=== PATIENT | male | born 1995 | race Caucasian/White ===

== ENCOUNTER 2017-01-12 15:29 | Inpatient (IN) | payer OTHER ==
[~2017-01-12] VITALS: Ht 177.8 cm; Wt 61.2 kg
[2017-01-12 17:05] VITALS: BP 135/67
--- NOTE | 2017-01-12 17:05 | NUR ---
Pre-admission Notes: Client is seen in intake at this time. Alert and oriented x 4. Noted to be diaphoretic and severe generalized tremors. Denies any AV hallucinations. Patient states "I feel cloudy in my head," Patient states "I feel numb." Denies any allergies. No seizure history. Reports past medial hx of Depression and PTSD. Patient states that he is here to come off of cocaine and rubbing ETOH. Patient is unable to recall the amount he uses at this time, however reported that he used all substances 1 hour prior to coming in. BP 135/67, Pulse 107, O2 sat 99% RA, PL 0/10, Temp 98.1. CIWA 20 - notified Dr. Greenwood of patient's CIWA and will come and see the patient in the unit.
--- NOTE | 2017-01-12 17:20 | NUR ---
Admission Note Patient is a 21 year old male admitted for ETOH and cocaine dependence under the care of Dr. Cesar Greenwood. Patient is alert and oriented x 4. Verbally responsive. Able to make his needs known. Responds appropriately to questions regarding the admission process. Respirations even and unlabored. No SOB noted. Lung sounds clear bilaterally. Body check done. No contraband was found. Skin check done. No skin breakdown noted. No lesions. No rashes noted. Abdomen soft and non-distended with (+) BS in all 4 quadrants. No complains of N/V Addendum: 01/12/17 at 1818 by MARIO PANDEY LVN Error in charting
--- NOTE | 2017-01-12 17:20 | NUR ---
Admission Note Patient is a 21 year old male admitted for ETOH and cocaine dependence under the care of Dr. Cesar Greenwood. Patient is alert and oriented x 4. Verbally responsive. Able to make his needs known. Responds appropriately to questions regarding the admission process. Respirations even and unlabored. No SOB noted. Lung sounds clear bilaterally. Body check done. No contraband was found. Skin check done. No skin breakdown noted. No lesions. No rashes noted. Appears diaphoretic with cold sweats. Abdomen soft and non-distended with (+) BS in all 4 quadrants. No complains of N/V/D or constipation noted at this time. Bladder soft and non-distended. Voids independently. Ambulatory ad leonidas with stead gait. Reports past medical hx of depression and PTSD. Denies having a PCP. Reports NKA. Wishes to be FULL CODE. Follows a REGULAR diet at home. Has hx of substance abuse in the family. Substance Use: 1. Cocaine - Snorts "8th ball" x 6 months. Last use was on 01/12/2017, 1/2 gram 1 hour prior to admission. 2. Rubbing ETOH - Intermittently drinks 1/2 bottle of rubbing ETOH x 6 months. Last use was on 01/12/2017, 1/2 bottle 1 hour prior to admission. Treatment History 1. Simple Recovery - less than a year ago. Patient states that he was there less than a month Dr. Greenwood in and seen the patient. Admission orders entered. Orders noted and carried out. Will continue to monitor.
[2017-01-12] MEDS ORDERED: LOPERAMIDE HCL 2 MG CAPSULE PO PRN ×2 (17:30)
[2017-01-12] MEDS ORDERED: LORAZEPAM 1 MG TABLET PO PRN ×2 (17:30)
[2017-01-12] MEDS ORDERED: MIRALAX 17 GM POWD.PACK PO PRN (17:30)
[2017-01-12] MEDS ORDERED: IBUPROFEN 600 MG TABLET PO PRN (17:30)
[2017-01-12] MEDS ORDERED: MAG HYDROX/AL HYDROX/SIMETH 30 ML LIQUID UDC PO PRN (17:30)
[2017-01-12] MEDS ORDERED: LORAZEPAM 2 MG/1 ML VIAL IM PRN (17:30)
[2017-01-12] MEDS ORDERED: ONDANSETRON 4 MG/2 ML VIAL IM PRN (17:30)
[2017-01-12] MEDS ORDERED: THIAMINE HCL 200 MG/2 ML VIAL IM ONE (17:30)
[2017-01-12] MEDS ORDERED: DICYCLOMINE HCL 20 MG TABLET PO PRN (17:30)
[2017-01-12 17:54] LABS: *AMPHETAMINE, URINE NEGATIVE (NEGATIVE); *BARBITURATE, URINE NEGATIVE (NEGATIVE); *CANNABINOID, URINE POSITIVE (NEGATIVE); *COCCAINE, URINE POSITIVE (NEGATIVE); *OPIATE, URINE NEGATIVE (NEGATIVE); *PHENCYCLIDINE SCREEN,URINE NEGATIVE (NEGATIVE)
[2017-01-12] MEDS ORDERED: ARIP15TA3 PO (18:08)
[2017-01-12] MEDS: ONDANSETRON ODT 4 MG TAB.RAPDIS SL PRN (18:27)
--- NOTE | 2017-01-12 18:27 | NUR ---
Ativan 2 mg PO/Zofran 4 mg SL given: CIWA 19, noted with moderate anxiety, gross tremors, nausea and vomiting x 1. Medicated patient with Ativan 2 mg PO and Zofran 4 mg SL for nausea and vomiting. Will monitor for effectiveness.
--- NOTE | 2017-01-12 18:58 | NUR ---
310 START OF SHIFT NOTE: Patient is a 21 year old male admitted to [facility] on 01/12/2017 for ETOH/Alcohol/Rubbing, Cocaine, and Marijuana dependence. Patient is continuing PRN Medications which tolerated well without ASE. Patient remains compliant with treatment, medications, and diet regime. Patient reports NKA, Regular Diet. Patient is on Full Code, Fall and Seizures Precautions. Patient denies History of Seizure. PMH: Anxiety, Depression, PTSD, Substance Abuse disorder. Patient reports Substance Use: 1."ETOH/Alcohol PO: " Rubbing 1/2 bottle intermittently for 6months. Last intake 1/2 bottle on 01/12/2017 @1600". 2."Coccaine: "8th ball last every day last 6 months. Last intake 1/2 gram on 01/12/2017 @1600". 3."Marijuana: "3 grams during 6 months. Last intake 1 joint on 01/12/2017 @1600". Patient reports Treatment History: "Simple Recovery" less than a year ago, less than a month stay". Upon endorsement, patient is in his room alert and oriented x4.. VSWNL. CIWA 9. The patient presented with anxiety, agitation, nervousness, tremors, diaphoresis, body aches, restless legs, and fatigue. Patient denies SI/HI. Respirations are unlabored and even. Patient denies SOB and chest pain. Lungs Sounds are clear bilaterally. Bowel Sounds active in all x4 quadrants. Abdomen is soft and non-tender. PERRLA, brisk capillary refill, head refrigerating engineer equal and strong. Skin is intact, warm and dry to touch. Encouraged to fluids intake as tolerated. Encouraged to attending groups activities. All needs met. Safety measures on place. Call light within reach, bed in lowest position, and locked, padded rails up bilaterally. Patient endorsed by day shift nurse. Report received. Will continue to monitor closely.
--- NOTE | 2017-01-12 18:58 | NUR ---
START OF SHIFT NOTE: Patient is a 21 year old male admitted to [facility] on 01/12/2017 for ETOH/Alcohol/Rubbing, Cocaine, and Marijuana dependence. Patient is continuing PRN Medications which tolerated well without ASE. Patient remains compliant with treatment, medications, and diet regime. Patient reports NKA, Regular Diet. Patient is on Full Code, Fall and Seizures Precautions. Patient denies History of Seizure. PMH: Anxiety, Depression, PTSD, Substance Abuse disorder. Patient reports Substance Use: 1."ETOH/Alcohol PO: " Rubbing 1/2 bottle intermittently for 6months. Last intake 1/2 bottle on 01/12/2017 @1600". 2."Coccaine: "8th ball last every day last 6 months. Last intake 1/2 gram on 01/12/2017 @1600". 3."Marijuana: "3 grams during 6 months. Last intake 1 joint on 01/12/2017 @1600". Patient reports Treatment History: "Simple Recovery" less than a year ago, less than a month stay". Upon endorsement, patient is in his room alert and oriented x4.. VSWNL. CIWA 9. The patient presented with anxiety, agitation, nervousness, tremors, diaphoresis, body aches, restless legs, and fatigue. Patient denies SI/HI. Respirations are unlabored and even. Patient denies SOB and chest pain. Lungs Sounds are clear bilaterally. Bowel Sounds active in all x4 quadrants. Abdomen is soft and non-tender. PERRLA, brisk capillary refill, primary grade teacher equal and strong. Skin is intact, warm and dry to touch. Encouraged to fluids intake as tolerated. Encouraged to attending groups activities. All needs met. Safety measures on place. Call light within reach, bed in lowest position, and locked, padded rails up bilaterally. Patient endorsed by day shift nurse. Report received. Will continue to monitor closely.
--- NOTE | 2017-01-12 18:58 | NUR ---
End of Shift Notes: Patient admitted today for ETOH and cocaine dependence. Patient's VS monitored closely. No significant abnormalities noted. Withdrawal symptoms monitored. Initial CIWA 20 - patient presented with gross tremors, anxiety, agitation, nausea and vomiting. Medicated patient with Zofran 4 mg SL and Ativan 2 mg PO as ordered.. Results pending. Compliant with care and treatment. All needs met and attended. Will continue to monitor closely.
[2017-01-12] MEDS ORDERED: IV NS 1000 ML 1,000 ML IV ONE (19:15)
--- NOTE | 2017-01-12 19:27 | NUR ---
RE-ASSESSMENT PATIENT DENIES N/V. PRN ZOFRAN ADMINISTRATED @1827 FOR NAUSEA AND VOMITING WAS EFFECTIVE.
--- NOTE | 2017-01-12 19:27 | NUR ---
RE-ASSESSMENT CIWA DECREASED FROM 20 TO 9. PRN ATIVAN EFFECTIVE. SAFETY MEASURES AT PLACE. WILL CONTINUE TO MONITOR CLOSELY.
[2017-01-12] MEDS ORDERED: NICOTINE POLACRILEX 4 MG GUM-PK OF TEN BC PRN (19:45)
[2017-01-12] MEDS ORDERED: NICOTINE 14 MG/24HR PATCH TD PRN (19:45)
[2017-01-12 20:00] VITALS: BP 121/78
--- NOTE | 2017-01-12 20:00 | NUR ---
START OF SHIFT NOTE: Patient is a 21 year old male admitted to [facility] on 01/12/2017 for ETOH/Alcohol/Rubbing, Cocaine, and Marijuana dependence. Patient is continuing PRN Medications which tolerated well without ASE. Patient remains compliant with treatment, medications, and diet regime. Patient reports NKA, Regular Diet. Patient is on Full Code, Fall and Seizures Precautions. Patient denies History of Seizure. PMH: Anxiety, Depression, PTSD, Substance Abuse disorder. Patient reports Substance Use: 1."ETOH/Alcohol PO: " Rubbing 1/2 bottle intermittently for 6months. Last intake 1/2 bottle on 01/12/2017 @1600". 2."Coccaine: "8th ball last every day last 6 months. Last intake 1/2 gram on 01/12/2017 @1600". 3."Marijuana: "3 grams during 6 months. Last intake 1 joint on 01/12/2017 @1600". Patient reports Treatment History: "Simple Recovery" less than a year ago, less than a month stay". Upon endorsement, patient is in his room alert and oriented x4.. VSWNL. CIWA 9. The patient presented with anxiety, agitation, nervousness, tremors, diaphoresis, body aches, restless legs, and fatigue. Patient denies SI/HI. Respirations are unlabored and even. Patient denies SOB and chest pain. Lungs Sounds are clear bilaterally. Bowel Sounds active in all x4 quadrants. Abdomen is soft and non-tender. PERRLA, brisk capillary refill, finger buffs assembler equal and strong. Skin is intact, warm and dry to touch. Encouraged to fluids intake as tolerated. Encouraged to attending groups activities. All needs met. Safety measures on place. Call light within reach, bed in lowest position, and locked, padded rails up bilaterally. Patient endorsed by day shift nurse. Report received. Will continue to monitor closely. Addendum: 01/12/17 at 2327 by AMARA MIKHAYLOVA RN WRONG TIME.
--- NOTE | 2017-01-12 20:00 | NUR ---
IV 20 G STARTED ON LEFT AC. SITE INTACT AND PATENT, FLASHING WELL, NO REDNESS NOTED.
[2017-01-12] MEDS: GABAPENTIN 300 MG CAPSULE PO SCH (20:29)
[2017-01-12] MEDS: ACETAMINOPHEN 325 MG TABLET PO PRN (20:29)
--- NOTE | 2017-01-12 20:29 | NUR ---
PRN TYLENOL 650 MG 2 TAB. PO ADMINISTRATION Patient c/o Generalized body aches and headache. Patient reports pain level "6/10". PRN Tylenol 650 mg 2 tab. PO administrated as ordered with full glass of water. Patient tolerated well. All needs met. Safety measures on place. Call light within reach, bed in lowest position and locked, padded rails up bilaterally rails up bilaterally. Will continue to monitor closely.
[2017-01-12 20:47] LABS: BASOPHILS % (AUTO) 0.5 % (0.0-2.0); EOSINOPHILS # (AUTO) 0.1 K/uL (0.0-0.7); EOSINOPHILS % (AUTO) 1.6 % (0.0-7.0); HEMATOCRIT 43.6 % (40-50); HEMOGLOBIN 15.1 G/DL (14.0-18.0); LYMPHOCYTES # (AUTO) 3.4 K/UL (0.8-4.8); LYMPHOCYTES % (AUTO) 41.8 % (20.5-74.5); MEAN CORPUSCULAR HEMOGLOBIN 31.2 UUG (27.0-31.0); MEAN CORPUSCULAR HGB CONC 35 g/dL (32.0-37.0); MEAN CORPUSCULAR VOLUME 90.4 FL (82.0-92.0); MONOCYTES # (AUTO) 0.9 K/UL (0.1-1.30); MONOCYTES % (AUTO) 10.6 % (0-11); NEUTROPHILS # (AUTO) 3.7 K/UL (1.8-8.9); NEUTROPHILS % (AUTO) 45.5 % (31.5-64.5); PLATELET COUNT (AUTO) 243 K/UL (150-450); RED BLOOD CELL COUNT(AUTO) 4.82 MIL/UL (4.7-6.1); WHITE BLOOD COUNT (AUTO) 8.1 K/UL (4.0-11.2)
[2017-01-12 20:55] LABS: ALANINE AMINOTRANSFERASE 33 U/L (16-63); ALKALINE PHOSPHATASE 57 U/L (50-136); AMYLASE 43 U/L (25-115); ASPARTATE AMINOTRANSFERASE 47 U/L (15-37); BILIRUBIN,TOTAL 1.2 mg/dL (0.2-1.0); CARBON DIOXIDE 34 mmol/L (21-32); CHLORIDE 102 mmol/L (98-107); CREATININE 1.7 mg/dL (0.6-1.3); GLUCOSE 82 mg/dL (74-106); MAGNESIUM 2.1 mg/dL (1.8-2.4); POTASSIUM 3.1 mmol/L (3.5-5.1); TOTAL PROTEIN, SERUM 7.3 g/dL (6.4-8.2); UREA NITROGEN, BLOOD 9 mg/dL (7-18)
[2017-01-12] MEDS ORDERED: LORAZEPAM 1 MG TABLET PO SCH (21:00)
[2017-01-12 21:29] LABS: ETHANOL < 3 MG/DL (0-0)
--- NOTE | 2017-01-12 21:29 | NUR ---
RE-ASSESSMENT Patient reports PRN Tylenol 650 mg 2 tab. PO administrated @2028 was effective. Pain level decreased from "610 to 2/10". All needs met. Safety measures on place. Call light within reach, bed in lowest position and locked, padded rails up bilaterally rails up bilaterally. Will continue to monitor closely.
[2017-01-12] MEDS ORDERED: POTASSIUM CHLORIDE 20 MEQ TAB.PRT.SR PO ONE (21:30)
[2017-01-12] MEDS ORDERED: POTASSIUM CHLORIDE 20 MEQ TAB.PRT.SR ONE (21:55)
--- NOTE | 2017-01-12 21:55 | NUR ---
POTASSIUM LEVEL 3.1. K-DUR ADMINISTRATED ORDERED. PATIENT TOLERATED WELL. ALL NEEDS MET. SAFETY MEASURES ON PLACE. WILL CONTINUE TO MONITOR CLOSELY.
[2017-01-13] VITALS: BP 103/68
--- NOTE | 2017-01-13 | NUR ---
IV DISLODGED. RESTARTED IV 20G ON RIGHT HAND. IV SITE PATENT AND INTACT Addendum: 01/14/17 at 0447 by AMARA JIN RN RESTARTED IV 22 G ON RIGHT UPPER ARM.
[2017-01-13] MEDS: IV NS 1000 ML 1,000 ML IV PRN ×2 (01:03→21:29)
[2017-01-13 04:00] VITALS: BP 98/56
--- NOTE | 2017-01-13 06:53 | NUR ---
END OF SHIFT NOTE: Patient is a 21 year old male admitted to [facility] on 01/12/2017 for ETOH/Alcohol/Rubbing, Cocaine, and Marijuana dependence. Patient is continuing PRN Medications which tolerated well without ASE. Patient reports NKA, Regular Diet. Patient is on Full Code, Fall and Seizures Precautions. Patient denies History of Seizure. PMH: Anxiety, Depression, PTSD, Substance Abuse disorder. IVF administrated as ordered. Patient received NS 1,000 ml by bolus. Recently is Bag #2 with NS, as ordered at rate 125ml/hr. IV site with 20G is intact and patent. PRN Tylenol administrated for generalized body aches, headache/pain level "6/10" was effective. Patient tolerated well. Patient remains compliant with treatment, medications, and diet regime. Last CIWA 6 @0400. COWS/CIWA taken when patient's awake during night. Last VS @0400: T: 98.1, BP: 98/56, HR: 68, RR:14, RA O2Sat: 100%, pain level: "7/10". Patient denies SI/HI. Respirations unlabored and even. Skin is intact, warm and dry to touch. Patient slept 8 hours, intake 1,850 ml, voided x2. Encouraged fluids intake as tolerated. All needs met. Safety measures on place. Call light within reach, bed in lowest position and locked, padded rails up bilaterally. Patient endorsed to day shift nurse. Report given.
--- NOTE | 2017-01-13 07:30 | NUR ---
START OF SHIFT Pt 21 y/o male admitted for etoh and cocaine dependence. Pt received in room on bed with eyes closed resting, but easily arousable to name. Pt alert and oriented to name, place, and time. Perrla. Skin warm and slightly moist to touch. Respirations even and unlabored. Bilateral hand tremors noted slightly. Pt with 22g peripheral IV on right arm noted, and is infusing NS 125ml/hr, and appears to be tolerating well. IV site on right arm intact and inplace, patent, with no redness or infiltration noted. It was reported that pt slept for 8 hours last night. Bed on lowest position with side rails x2 up for safety. Call light within reach. No distress noted this time.
[2017-01-13 08:00] VITALS: BP 128/85
[2017-01-13] MEDS: THIAMINE HCL 100 MG TABLET PO SCH (08:35)
[2017-01-13] MEDS: LORAZEPAM 1 MG TABLET PO SCH ×3 (08:35→20:27)
[2017-01-13] MEDS: MULTIVITAMINS,THERAPEUTIC TABLET PO SCH (08:35)
[2017-01-13] MEDS: FOLIC ACID 1 MG TABLET PO SCH (08:35)
[2017-01-13] MEDS: GABAPENTIN 300 MG CAPSULE PO SCH ×2 (08:38→20:26)
--- NOTE | 2017-01-13 08:55 | NUR ---
PRN REFUSE/WASTE Pt changed mind about nicotine patch and refused.
--- NOTE | 2017-01-13 08:55 | NUR ---
PRN Pt states has body pain 6/10. Motrin po prn per MD order given and tolerated well.
[2017-01-13] MEDS ORDERED: TUBERCULIN,PURIF.PROT.DERIV. 5 TU/0.1 ML TEST ID ONE (09:00)
--- NOTE | 2017-01-13 09:15 | NUR ---
PRN LIV Pt states pain 04/10.
--- NOTE | 2017-01-13 09:33 | NUR ---
SUBSTANCE HISTORY ADDITIONAL 4) dilaudid 4 mg po qid daily x 6 months. Last used 01/10/17 4mg qid. total 6 years 5) hydrocodone 10mg bid po daily x 6 months. Last used 01/10/17 10mg bid. total 4 years.
--- NOTE | 2017-01-13 09:55 | NUR ---
PRN EVAL pt states pain is 2/10.
[2017-01-13] MEDS: BUPRENORPHINE HCL 2 MG TAB.SUBL SL SCH ×3 (13:29→20:27)
--- NOTE | 2017-01-13 13:31 | NUR ---
PRN REFUSE/ WASTE Pt changed mind and did not want miralax.
[2017-01-13 13:44] VITALS: BP 124/81
--- NOTE | 2017-01-13 15:07 | NUR ---
Therapist prompted client to attend group. Client agreed to come to group today.
[2017-01-13] MEDS: ONDANSETRON ODT 4 MG TAB.RAPDIS SL PRN (16:01)
--- NOTE | 2017-01-13 16:05 | NUR ---
PRN Zofran Pt reports one episode of emesis and nausea. Administered PRN Zofran.
--- NOTE | 2017-01-13 17:02 | NUR ---
Therapist prompted client to attend daily group sessions. Client stated that he would make an effort to attend.
[2017-01-13 17:03] VITALS: BP 109/71
--- NOTE | 2017-01-13 17:05 | NUR ---
PRN EVAL Pt states nausea and vomit has stopped.
--- NOTE | 2017-01-13 18:34 | NUR ---
PRN Pt with vomit episode x1. Zofran IM prn per MD order given and tolerated well.
--- NOTE | 2017-01-13 18:58 | NUR ---
START OF SHIFT NOTE: Patient is a 21 year old male admitted to [facility] on 01/12/2017 for ETOH/Alcohol/Rubbing, Cocaine, and Marijuana dependence. Patient is continuing PRN Medications which tolerated well without ASE. Patient remains compliant with treatment, medications, and diet regime. Patient reports NKA, Regular Diet. Patient is on Full Code, Fall and Seizures Precautions. Patient denies History of Seizure. PMH: Anxiety, Depression, PTSD, Substance Abuse disorder. Upon endorsement COWS 8, CIWA 9. VS: T: 97.9, BP: 123/63, HR: 68, RR:19, RA O2Sat: 100%, generalized body aches/pain level: "5/10". Patient denies SI/HI. Respirations unlabored and even. Skin is intact, warm and dry to touch. Peripheral IVF NS @125 ml/hr as ordered. Right Upper arm IV site patent and intact. Encouraged to fluids intake as tolerated. Encouraged to attending groups activities. All needs met. Safety measures on place. Call light within reach, bed in lowest position, and locked, padded rails up bilaterally. Patient endorsed by day shift nurse. Report received. Will continue to monitor closely.
--- NOTE | 2017-01-13 18:58 | NUR ---
END OF SHIFT Pt 21 y/o male admitted for etoh/ cocaine dependence. Pt alert and oriented to name, place, and time. Perrla. Skin warm and moist to touch. Respirations even and unlabored. Bilateral hand tremors noted. Pt observed mostly in dining room. Pt attended group activity. Pt with 22g peripheral IV on right arm, with no redness or infiltration noted, and is patent and is infusing NS 125/mL and is tolerating well. Pt was seen by MD today. Pt medication compliant and tolerated well. No ASE noted.
[2017-01-13 20:00] VITALS: BP 123/63
[2017-01-13] MEDS: diphenhydrAMINE 50 MG CAPSULE PO PRN (20:27)
[2017-01-13] MEDS ORDERED: PROMETHAZINE HCL 25 MG/1 ML VIAL IM PRN (21:45)
[2017-01-13] MEDS ORDERED: PROMETHAZINE HCL 25 MG/1 ML VIAL ONE (22:25)
--- NOTE | 2017-01-13 22:28 | NUR ---
PRN PHENERGAN 25 MG/1 ML IM ADMINISTRATION Patient c/o nausea and vomiting x2. PRN Phenergan 25 mg/1ml IM Inj on the Left Dorsogluteal Site: Gluteus Jaquan Muscle administrated as ordered. Patient tolerated well. All needs met. Safety measures on place. Call light within reach, bed in lowest position and locked, padded rails up bilaterally. Will continue to monitor closely.
--- NOTE | 2017-01-13 23:28 | NUR ---
RE-ASSESSMENT Patient is sleeping. Respirations even and unlabored. RR 16. PRN Phenergan administrated @2228 was effective. All needs met. Safety measures on place. Call light within reach, bed in lowest position and lock ed, padded rails up bilaterally rails up bilaterally. Will continue to monitor closely.
[2017-01-14] VITALS: BP 106/65
[2017-01-14 04:00] VITALS: BP 96/56
[2017-01-14] MEDS: ACETAMINOPHEN 325 MG TABLET PO PRN (05:44)
[2017-01-14] MEDS: CLONIDINE HCL 0.1 MG TABLET PO PRN ×2 (05:44→13:08)
--- NOTE | 2017-01-14 05:44 | NUR ---
PRN TYLENOL 650 MG 2 TAB AND PRN CLONIDINE 0.1 MG 1 TAB PO FOR ANXIETY ADMINISTRATED. PATIENT TOLERATED WELL. ALL NEEDS MET. SAFETY MEASURES ON PLACE. WILL CONTINUE TO MONITOR CLOSELY.
--- NOTE | 2017-01-14 06:44 | NUR ---
RE-ASSESSMENT Patient is sleeping. Respirations even and unlabored. RR 16. PRN Tylenol PO and PRN Clonidine PO were effective. All needs met. Safety measures on place. Call light within reach, bed in lowest position and locked, padded rails up bilaterally rails up bilaterally. Will continue to monitor closely.
--- NOTE | 2017-01-14 07:00 | NUR ---
IV DISLODGED. RESTARTED IV 22G ON UPPER RIGHT ARM. IV SITE PATENT AND INTACT
--- NOTE | 2017-01-14 07:30 | NUR ---
START OF SHIFT Pt 21 y/o male admitted for etoh/ cocaine dependence. Pt received in room awake watching television. Pt alert and oriented to name, place, and time. Perrla. Skin warm and slightly moist to touch. Respirations even and unlabored. Bilateral hand tremors noted slightly. Pt with peripheral IV 22g on right AC intact and in place, patent, with no redness and is infusing NS 125/mL and is tolerating well. It was reported that pt slept for 7 hours last night. Bed on lowest position with side rails x2 up for safety. Call light within reach. No distress noted at this time.
--- NOTE | 2017-01-14 07:39 | NUR ---
END OF SHIFT NOTE: Patient is a 21 year old male admitted to [facility] on 01/12/2017 for ETOH/Alcohol/Rubbing, Cocaine, and Marijuana dependence. Patient is continuing PRN Medications which tolerated well without ASE. Patient reports NKA, Regular Diet. Patient is on Full Code, Fall and Seizures Precautions. Patient denies History of Seizure. PMH: Anxiety, Depression, PTSD, Substance Abuse disorder. IVF administrated as ordered. Patient received IVF with NS 1,000 ml Recently is Bag #3 with NS, as ordered at rate 125ml/hr. IV site on the Right Upper arm with 22G is intact and patent. PRN Phenergan IM for N/V, PRN Clonidine 0.1mg 1 tab PO for anxiety and PRN Tylenol administrated for generalized body aches, headache/pain level "6/10" were effective. Patient tolerated well. Patient remains compliant with treatment, medications, and diet regime. Last COWS 6,CIWA 4 @0400. COWS/CIWA taken when patient's awake during night. Last VS @0400: T: 98.1, BP: 98/56, HR: 68, RR:14, RA O2Sat: 100%, pain level: "7/10". Patient denies SI/HI. Respirations unlabored and even. Skin is intact, warm and dry to touch. Patient slept 8 hours, intake 1,850 ml, voided x2. Encouraged fluids intake as tolerated. All needs met. Safety measures on place. Call light within reach, bed in lowest position and locked, padded rails up bilaterally. Patient endorsed to day shift nurse. Report given.
[2017-01-14 08:00] VITALS: BP 118/63
[2017-01-14 08:09] LABS: BILIRUBIN,DIRECT 0.2 mg/dL (0.0-0.2); CREATININE 1.5 mg/dL (0.6-1.3); MAGNESIUM 1.8 mg/dL (1.8-2.4); TOTAL PROTEIN, SERUM 6.9 g/dL (6.4-8.2)
[2017-01-14] MEDS: MULTIVITAMINS,THERAPEUTIC TABLET PO SCH (08:32)
[2017-01-14] MEDS: GABAPENTIN 300 MG CAPSULE PO SCH ×2 (08:32→21:27)
[2017-01-14] MEDS: FOLIC ACID 1 MG TABLET PO SCH (08:32)
[2017-01-14] MEDS: LORAZEPAM 1 MG TABLET PO SCH ×3 (08:32→21:28)
[2017-01-14] MEDS: THIAMINE HCL 100 MG TABLET PO SCH (08:32)
[2017-01-14] MEDS: BUPRENORPHINE HCL 2 MG TAB.SUBL SL SCH ×3 (08:33→21:31)
--- NOTE | 2017-01-14 09:00 | NUR ---
PRN REFUSAL Pt states did not have BM for a yesterday. Offered Miralaax powder mix prn per MD order, but pt refused even with encouragement.
[2017-01-14 12:07] LABS: HEPATITIS B SURFACE AG Negative (Negative)
[2017-01-14 12:51] VITALS: BP 147/95
--- NOTE | 2017-01-14 13:12 | NUR ---
PRN Pt with nr=058/95 and states feels anxious. Catapres po prn per MD order given and tolerated well.
--- NOTE | 2017-01-14 14:12 | NUR ---
PRN EVAL vm=455/88
--- NOTE | 2017-01-14 14:21 | NUR ---
IV PULLED OUT Peripheral IV pulled out by pt.
[2017-01-14] MEDS: IV NS 1000 ML 1,000 ML IV PRN (15:42)
[2017-01-14 16:00] VITALS: BP 134/86
[2017-01-14] MEDS ORDERED: predniSONE 20 MG TABLET PO SCH (18:00)
--- NOTE | 2017-01-14 18:07 | NUR ---
END OF SHIFT Pt 21 y/o male admitted for etoh/ cocaine dependence. Pt alert and oriented to name, place, and time. Perrla. Skin warm and moist to touch. Respirations even and unlabored. Bilateral hand tremors noted. Pt observed mostly in dining room. Pt attended group activity. Pt with 22g peripheral IV on right AC, with no redness or infiltration noted, and is patent and is infusing NS 125/mL and is tolerating well. Pt was seen by MD today. Pt medication compliant and tolerated well. No ASE noted. Addendum: 01/14/17 at 1859 by ARELY WEST RN correction IV site on right forearm
--- NOTE | 2017-01-14 19:30 | NUR ---
Start of Shift Notes: Report received from day shift nurse. Pt is a 21M, admitted for ETOH/Opiate/Cocaine dependence on 01/12/17. Pt was at group activity during the start of shift. Pt is AOx4 without s/s of acute distress. Pt is full code, on regular diet, and on fall/seizure precautions. Pt noted with NKA. Pt reports hx of Depression and PTSD. Pt is currently on 4-day Ativan and 4-day Subutex taper to manage withdrawal symptoms. Per day shift nurse, pt's last CIWA was 3 and last COWS was 4 at 1641. Bed in lowest position. Side rails up x2. Call light functioning and within reach. All needs attended and met. Will continue to monitor.
[2017-01-14 20:00] VITALS: BP 149/92
--- NOTE | 2017-01-14 20:00 | NUR ---
Pt Communication: Pt educated about the importance of keeping his IV fluids infusing for hydration. Pt insists on going to the smoking patio or the recreation room. Risks explained to pt. Pt verbalized understanding. Pt stated he can drink fluids for intake. IV site remains intact and patent on RFA. Will continue to monitor.
[2017-01-14] MEDS: DICYCLOMINE HCL 20 MG TABLET PO SCH (21:28)
[2017-01-14] MEDS: CLONIDINE HCL 0.1 MG TABLET PO SCH (21:28)
--- NOTE | 2017-01-14 23:30 | NUR ---
Pt Assessment: Pt reconnected back to IV fluids. NS infusing through RFA @ 125ml/hr. No adverse reaction noted. Will continue to monitor.
[2017-01-14] MEDS: diphenhydrAMINE 50 MG CAPSULE PO PRN (23:43)
--- NOTE | 2017-01-14 23:43 | NUR ---
PRN Benadryl: Pt requested medication to help him sleep. PRN Benadryl given as ordered. Will continue to monitor.
[2017-01-15] VITALS (7 sets, daily range): BP systolic 105–141; BP diastolic 50–91
--- NOTE | 2017-01-15 06:40 | NUR ---
End of Shift Notes: Pt is 21M, admitted for ETOH/Opiate/Cocaine dependence on 01/12/17. Pt is full code, on regular diet, and on fall/seizure precautions. Pt noted with NKA. Pt reports hx of Depression and PTSD. Pt is currently on 4-day Ativan and 4-day Subutex taper to manage withdrawal symptoms. Pt is compliant with plan of care. Pt slept for 4 hours. Respirations even and unlabored. Last CIWA score was 4 and last COWS score was 3 at 0400. PRN Benadryl was given for sleep. No N/V noted during the shift. Fall and Sz precautions observed. Bed in lowest position. Side rails up x2. Call light functioning and within reach. All needs attended and met. Will endorse to day shift nurse.
[2017-01-15] MEDS: ACETAMINOPHEN 325 MG TABLET PO PRN ×2 (06:53→08:33)
[2017-01-15] MEDS: IV NS 1000 ML 1,000 ML IV PRN (06:54)
--- NOTE | 2017-01-15 07:30 | NUR ---
START OF SHIFT Pt 21 y/o male admitted for etoh/ cocaine dependence. Pt received in room awake walking around in the hallways. Pt alert and oriented to name, place, and time. Perrla. Skin warm and slightly moist to touch. Respirations even and unlabored. Bilateral hand tremors noted slightly. Pt with peripheral IV 22g on right forearm intact and in place, patent, with no redness and is infusing NS 125/mL and is tolerating well. It was reported that pt slept for 4 hours last night. Bed on lowest position with side rails x2 up for safety. Call light within reach. No distress noted at this time.
[2017-01-15] MEDS: GABAPENTIN 300 MG CAPSULE PO SCH ×3 (08:33→20:39)
[2017-01-15] MEDS: MULTIVITAMINS,THERAPEUTIC TABLET PO SCH (08:33)
[2017-01-15] MEDS: BUPRENORPHINE HCL 2 MG TAB.SUBL SL SCH ×2 (08:33→20:39)
[2017-01-15] MEDS: THIAMINE HCL 100 MG TABLET PO SCH (08:33)
[2017-01-15] MEDS: CLONIDINE HCL 0.1 MG TABLET PO SCH ×2 (08:33→20:39)
[2017-01-15] MEDS: FOLIC ACID 1 MG TABLET PO SCH (08:33)
[2017-01-15] MEDS: LORAZEPAM 1 MG TABLET PO SCH ×2 (08:34→20:39)
--- NOTE | 2017-01-15 08:38 | NUR ---
prn pt states has headache 6/10. Tylenol po prn per MD order given and tolerated well.
[2017-01-15] MEDS: ONDANSETRON ODT 4 MG TAB.RAPDIS SL PRN (08:51)
--- NOTE | 2017-01-15 08:52 | NUR ---
PRN pt with c/o nausea. Zofran odt prn per MD order given and tolerated well.
--- NOTE | 2017-01-15 09:00 | NUR ---
PRN REFUSAL Pt states did not have BM for a yesterday. Offered Miralaax powder mix prn per MD order, but pt refused even with encouragement.
--- NOTE | 2017-01-15 09:38 | NUR ---
PRN EVAL Pt states headache 04/10.
--- NOTE | 2017-01-15 09:52 | NUR ---
PRN EVAL Pt states does not feel nauseous.
[2017-01-15] MEDS: DICYCLOMINE HCL 20 MG TABLET PO SCH ×3 (11:13→20:39)
[2017-01-15] MEDS ORDERED: PENICILLIN G BENZATHINE 2.4 MMU/4 ML DISP.SYRIN IM ONE (15:00)
--- NOTE | 2017-01-15 18:11 | NUR ---
END OF SHIFT Pt 21 y/o male admitted for etoh/ cocaine dependence. Pt alert and oriented to name, place, and time. Perrla. Skin warm and moist to touch. Respirations even and unlabored. Bilateral hand tremors noted. Pt observed mostly in dining room. Pt attended group activity. Pt with 22g peripheral IV on right forearm, with no redness or infiltration noted, and is patent and is infusing NS 125/mL and is tolerating well. Pt was seen by MD today. Pt medication compliant and tolerated well. No ASE noted.
--- NOTE | 2017-01-15 19:00 | NUR ---
Start of Shift Patient Received. Patient is in activities room participating in group activities. Patient is a 21 year old male admitted on 01/12/17 for ETOH and Opiate Dependence under the care of Dr. Greenwood. He is currently receiving a modified 4 day Ativan and 4 day Subutex taper. Patient verbalizes no known allergies, wishes to be full code, following a regular diet, placed on fall and seizure precautions, and skin noted intact. Patients past medical history noted as Depression and PTSD. No history of seizures noted. Per endorsement, patient is currently receiving IV Therapy of NS 125/ml with 22gauge peripheral IV to the right forearm and is tolerating well. No Redness or infiltration noted. patient was given PRN Tylenol for pain and medication noted to be effective. Patient also received One time dose of PCN injection for Positive RPR. Last noted COWS 3 and CIWA 4. All needs attended to promptly. Will continue plan of care as ordered.
[2017-01-16] VITALS: BP 125/66
[2017-01-16] MEDS: OLANZAPINE ZYDIS 5 MG TAB.RAPDIS PO PRN ×2 (00:33→21:09)
--- NOTE | 2017-01-16 00:35 | NUR ---
PRN Medication Administration Patient verbalizing increased agitation and frustrations. PRN Zyprexa administered as per order. Will continue to monitor.
--- NOTE | 2017-01-16 01:30 | NUR ---
PRN Medication Reassessment Patient noted in bed sleeping. Breathing even and non labored. No signs of pain or discomfort noted. Patient was given PRN Zyprexa for increased agitation with medication noted to be effective. Will continue to monitor.
[2017-01-16 04:10] VITALS: BP 131/80
[2017-01-16] MEDS ORDERED: HYDROXYZINE PAMOATE 25 MG CAPSULE PO PRN ×2 (04:30→17:30)
[2017-01-16] MEDS ORDERED: HYDROXYZINE PAMOATE 25 MG CAPSULE PO ONE (04:30)
--- NOTE | 2017-01-16 04:33 | NUR ---
PRN Medication Administration Patient noted awake with increased anxiety and agitation due to completion of IV therapy. one time order for Vistaril 25mg obtained from MD and administered as per order. Will continue to monitor.
[2017-01-16] MEDS ORDERED: HYDROXYZINE PAMOATE 25 MG CAPSULE ONE (04:42)
--- NOTE | 2017-01-16 07:24 | NUR ---
End of Shift Patient is in his room sleeping. Breathing even and non labored. No signs of pain or discomfort noted. Patient is a 21 year old male admitted on 01/12/17 for ETOH and Opiate Dependence and is currently receiving a modified 4 day Ativan and 4 day Subutex taper. No Known Allergies, Full Code, Regular Diet, placed on fall and seizure precautions, and skin noted intact. IV therapy completed and patient tolerated well. IV site remains intact with no signs of redness of infiltration. patient was given one time dose of Vistaril 25mg and PRN Zyprexa with medications noted to be effective. Last noted COWS 6 and CIWA 10. All needs attended to promptly. Will endorse to continue plan of care as ordered.
--- NOTE | 2017-01-16 07:30 | NUR ---
START OF SHIFT Pt 21 y/o male admitted for etoh/ cocaine dependence. Pt received in room awake walking around in the hallways. Pt alert and oriented to name, place, and time. Perrla. Skin warm and slightly moist to touch. Respirations even and unlabored. Bilateral hand tremors noted slightly. It was reported that pt slept for 5 hours last night. Bed on lowest position with side rails x2 up for safety. Call light within reach. No distress noted at this time.
[2017-01-16] MEDS: MULTIVITAMINS,THERAPEUTIC TABLET PO SCH (08:48)
[2017-01-16] MEDS: GABAPENTIN 300 MG CAPSULE PO SCH ×3 (08:48→21:09)
[2017-01-16] MEDS: THIAMINE HCL 100 MG TABLET PO SCH (08:48)
[2017-01-16] MEDS: CLONIDINE HCL 0.1 MG TABLET PO SCH ×2 (08:49→21:09)
[2017-01-16] MEDS: LORAZEPAM 1 MG TABLET PO SCH (08:49)
[2017-01-16] MEDS: FOLIC ACID 1 MG TABLET PO SCH (08:49)
[2017-01-16 08:53] VITALS: BP 103/62
[2017-01-16] MEDS ORDERED: BUPRENORPHINE HCL 2 MG TAB.SUBL SL SCH (09:00)
[2017-01-16] MEDS ORDERED: LORAZEPAM 1 MG TABLET PO SCH (09:00)
[2017-01-16] MEDS: DICYCLOMINE HCL 20 MG TABLET PO SCH ×3 (09:31→21:08)
--- NOTE | 2017-01-16 09:37 | NUR ---
PRN REFUSAL Pt states did not have BM for a yesterday. Offered Miralaax powder mix prn per MD order, but pt refused even with encouragement. Pt states still has flatulence.
[2017-01-16 12:31] VITALS: BP 142/81
[2017-01-16 17:31] VITALS: BP 132/92
--- NOTE | 2017-01-16 18:40 | NUR ---
END OF SHIFT Pt 21 y/o male admitted for etoh/ cocaine dependence. Pt alert and oriented to name, place, and time. Perrla. Skin warm and moist to touch. Respirations even and unlabored. Bilateral hand tremors noted. Pt observed mostly in dining room. Pt is scheduled to be discharged tomorrow. Pt attended group activity. Pt was seen by MD today. Pt medication compliant and tolerated well. No ASE noted.
--- NOTE | 2017-01-16 19:05 | NUR ---
Start of Shift Patient Received. Patient is in activities room participating in group activities. Patient is a 21 year old male admitted on 01/12/17 for ETOH and Opiate Dependence and is currently receiving a modified 4 day Ativan and 4 day Subutex taper. No Known Allergies, Full Code, Regular Diet, placed on fall and seizure precautions, and skin noted intact. IV therapy completed and IV Site discontinued. Patient is set for discharge tomorrow 01/17/17. Last noted COWS 4 and CIWA 2. All needs attended to promptly. Will continue plan of care as ordered.
[2017-01-16] MEDS ORDERED: HYDR-3895 PO (19:21)
[2017-01-16] MEDS ORDERED: GABA-534 PO ×2 (19:21)
[2017-01-16] MEDS ORDERED: CLON0.1T14 PO (19:21)
[2017-01-16] MEDS ORDERED: DICY20TA28 PO (19:21)
[2017-01-16] MEDS ORDERED: DIPH50CA37 PO (19:21)
[2017-01-16] MEDS ORDERED: IBUP-1955 PO (19:21)
[2017-01-16] MEDS ORDERED: OLAN5TAB6 PO (19:22)
[2017-01-16] MEDS ORDERED: ONDA4TAB11 SL (19:22)
[2017-01-16] MEDS ORDERED: NICO4GUM38 BC (19:22)
[2017-01-16 20:26] VITALS: BP 143/83
--- NOTE | 2017-01-16 21:10 | NUR ---
PRN Medication Administration Patient verbalizing increased agitation due to history of PTSD. PRN Zyprexa administered as per order. Will continue to monitor.
[2017-01-16] MEDS: diphenhydrAMINE 50 MG CAPSULE PO PRN (21:43)
--- NOTE | 2017-01-16 21:45 | NUR ---
PRN Medication Administration Patient verbalizing inability of falling asleep. PRN Benadryl administered as per ordered. Will continue to monitor.
--- NOTE | 2017-01-16 22:45 | NUR ---
PRN Medication Reassessment Patient noted in bed sleeping. Breathing even and non labored. Patient was given PRN Zyprexa for increased agitation and PRN Benadryl for inability of falling asleep. Medication noted to be effective. Will continue to monitor.
[2017-01-17 00:55] VITALS: BP 112/67
[2017-01-17 04:01] VITALS: BP 125/79
--- NOTE | 2017-01-17 07:21 | NUR ---
End of Shift Patient is in bed awake, alert and verbally responsive. Breathing even and non labored. No pain verbalized. Patient is a 21 year old male admitted on 01/12/17 for ETOH and Opiate Dependence and completed a 4 day Ativan and 4 day Subutex taper. No Known Allergies, Full Code, Regular Diet, placed on fall and seizure precautions, and skin noted intact. Patient is set for discharge today 01/17/17. Patient received PRN Zyprexa and PRN Benadryl with medications noted to be effective. Last noted COWS 4 and CIWA 4. All needs attended to promptly. Will endorse to continue plan of care as ordered.
--- NOTE | 2017-01-17 07:35 | NUR ---
START OF SHIFT Received report from night nurse, pt was admitted on 01/12/17 for ETOH, opiate and cocaine withdrawals. Pt is medically cleared for d/c. PRN Zyprexa and Benadryl administered and effective. Pt slept for 8 hours. Most recent CIWA is 4, most recent COWS is 4. All needs met, pt is not in any acute discomfort. Will continue to monitor.
[2017-01-17 08:05] VITALS: BP 123/76
[2017-01-17 08:15] VITALS: BP 123/76
[2017-01-17] MEDS: GABAPENTIN 300 MG CAPSULE PO SCH (08:15)
[2017-01-17] MEDS: FOLIC ACID 1 MG TABLET PO SCH (08:15)
[2017-01-17] MEDS: DICYCLOMINE HCL 20 MG TABLET PO SCH (08:15)
[2017-01-17] MEDS: CLONIDINE HCL 0.1 MG TABLET PO SCH (08:15)
[2017-01-17] MEDS: MULTIVITAMINS,THERAPEUTIC TABLET PO SCH (08:15)
[2017-01-17] MEDS: THIAMINE HCL 100 MG TABLET PO SCH (08:15)
--- NOTE | 2017-01-17 09:20 | NUR ---
D/C NOTES Pt is A/O x4. V/S remain WNL. Pt denies SI/HI or hallucinations. Pt shows no s/s of acute withdrawal at this time, and is stable. has medically cleared pt for d/c . Education on Hepatitis C, smoking cessation and medication side effects provided. Pt verbalizes understanding. All pt belongings are in belonging bag, including prescriptions, pt did not have any home medications. Refuses PNU vaccination. Pt is being accompanied by DAIRY NUTRITION SPECIALIST at this time to be transported to rehab. All needs met.
== END 2017-01-17 09:20 | disposition other institution (70) | DRG 895 ==
LOC: SRC 16:53
PROVIDERS: ADMIT Internal Medicine; ATTEND Internal Medicine
PROC: HZ2ZZZZ Detoxification Services for Substance Abuse Treatment (ICD-10-PCS; principal; 2017-01-12)
PROC: HZ41ZZZ Group Counseling for Substance Abuse Treatment, Behavioral (ICD-10-PCS; principal; 2017-01-12)
DX: F10.239 Alcohol dependence with withdrawal, unspecified (principal); N17.9 Acute kidney failure, unspecified; E87.3 Alkalosis; A53.0 Latent syphilis, unspecified as early or late; F15.20 Other stimulant dependence, uncomplicated; F11.23 Opioid dependence with withdrawal; K70.10 Alcoholic hepatitis without ascites; F17.210 Nicotine dependence, cigarettes, uncomplicated; Z80.9 Family history of malignant neoplasm, unspecified; Z91.89 Other specified personal risk factors, not elsewhere classified; Z81.1 Family history of alcohol abuse and dependence; Z83.3 Family history of diabetes mellitus; Z59.0 Homelessness; F43.10 Post-traumatic stress disorder, unspecified; E86.0 Dehydration; F12.90 Cannabis use, unspecified, uncomplicated; F32.9 Major depressive disorder, single episode, unspecified; F14.220 Cocaine dependence with intoxication, uncomplicated; I15.9 Secondary hypertension, unspecified; Y90.9 Presence of alcohol in blood, level not specified
CPT/HCPCS: 36415; 70030-TC; 80307; 80349; 80353; 83735; 85025; 86580; 86592; 86705; 86803; 87340; 87806; A4663; G0480; J2405; J2550; J3411; J7030; J7042; J7512; Q0162; Q0163

== ENCOUNTER 2017-04-11 14:52 | Inpatient (IN) | payer OTHER ==
[~2017-04-11] VITALS: Ht 180.3 cm; Wt 61.2 kg
[~2017-04-11 14:52] MED LIST: CLON0.1T14 PO; DICY20TA28 PO; DIPH50CA37 PO; GABA-534 PO; HYDR-3895 PO; IBUP-1955 PO; NICO4GUM38 BC; OLAN5TAB6 PO; ONDA4TAB11 SL
[2017-04-11] MEDS ORDERED: THIAMINE HCL 200 MG/2 ML VIAL IM ONE (15:45)
[2017-04-11] MEDS ORDERED: LORAZEPAM 2 MG/1 ML VIAL IM PRN (15:45)
[2017-04-11] MEDS ORDERED: ONDANSETRON ODT 4 MG TAB.RAPDIS SL PRN (15:45)
[2017-04-11] MEDS ORDERED: MAG HYDROX/AL HYDROX/SIMETH 30 ML LIQUID UDC PO PRN (15:45)
[2017-04-11] MEDS ORDERED: ACETAMINOPHEN 325 MG TABLET PO PRN (15:45)
[2017-04-11] MEDS ORDERED: diphenhydrAMINE 50 MG CAPSULE PO PRN (15:45)
[2017-04-11] MEDS ORDERED: ONDANSETRON 4 MG/2 ML VIAL IM PRN (15:45)
[2017-04-11] MEDS ORDERED: LORAZEPAM 1 MG TABLET PO PRN ×2 (15:45)
[2017-04-11] MEDS ORDERED: CLONIDINE HCL 0.1 MG TABLET PO PRN (15:45)
[2017-04-11] MEDS ORDERED: DICYCLOMINE HCL 20 MG TABLET PO PRN (15:45)
[2017-04-11] MEDS ORDERED: IBUPROFEN 600 MG TABLET PO PRN (15:45)
[2017-04-11] MEDS ORDERED: LOPERAMIDE HCL 2 MG CAPSULE PO PRN ×2 (15:45)
[2017-04-11] MEDS ORDERED: MIRALAX 17 GM POWD.PACK PO PRN (15:45)
[2017-04-11] MEDS ORDERED: BUPRENORPHINE HCL 2 MG TAB.SUBL SL PRN (15:45)
--- NOTE | 2017-04-11 15:45 | NUR ---
PRE-ADMISSION NOTE Pt is a 22 yr old male, AA&Ox4. Pt is presenting himself in intake intoxicated with alcohol and cocaine. Pt states of drinking 1.5 pint of whiskey and snorting 2.5g of cocaine prior to admission. Pt breath smells like alcohol. VS are BP 122/64,P 78, R 18, T 98.4, O2 98%, 6/10 pain to lower back. Will continue with assessment upon arrival on unit.
[2017-04-11 16:00] VITALS: BP 122/64
[2017-04-11 16:13] LABS: BASOPHILS % (AUTO) 0.4 % (0.0-2.0); EOSINOPHILS % (AUTO) 0.1 % (0.0-7.0); HEMOGLOBIN 14.6 g/dL (12.5-16.3); LYMPHOCYTES % (AUTO) 23.3 % (20.5-51.5); MEAN CORPUSCULAR HEMOGLOBIN 31.1 uug (23.8-33.4); MEAN CORPUSCULAR HGB CONC 35 g/dL (32.5-36.3); MEAN CORPUSCULAR VOLUME 89.7 fL (73.0-96.2); MONOCYTES # (AUTO) 1.6 K/uL (2.0-10.0); MONOCYTES % (AUTO) 12.5 % (0.0-11.0); NEUTROPHILS # (AUTO) 8.2 K/uL (1.8-8.9); NEUTROPHILS % (AUTO) 63.7 % (38.5-71.5); PLATELET COUNT (AUTO) 268 K/uL (152-348); RED BLOOD CELL COUNT(AUTO) 4.68 MIL/uL (4.06-5.63); WHITE BLOOD COUNT (AUTO) 12.8 K/uL (3.6-10.2)
[2017-04-11 16:20] LABS: BILIRUBIN,TOTAL 1.5 mg/dL (0.2-1.0); CREATININE 1.2 mg/dL (0.6-1.3); POTASSIUM 3.1 mmol/L (3.5-5.1); TOTAL PROTEIN, SERUM 8.1 g/dL (6.4-8.2)
--- NOTE | 2017-04-11 16:25 | NUR ---
MEDICATION REFUSED Pt refused Vitamin B1 injection. Pt was educated on medication regimen. Pt continues to refuse.
[2017-04-11 16:27] LABS: *AMPHETAMINE, URINE NEGATIVE (NEGATIVE); *BARBITURATE, URINE NEGATIVE (NEGATIVE); *CANNABINOID, URINE POSITIVE (NEGATIVE); *COCCAINE, URINE POSITIVE (NEGATIVE); *OPIATE, URINE NEGATIVE (NEGATIVE); *PHENCYCLIDINE SCREEN,URINE NEGATIVE (NEGATIVE)
--- NOTE | 2017-04-11 16:45 | NUR ---
ADMISSION NOTE Pt is a 22 yr old male, AA&Ox4. Pt is presenting himself to [facility] for medically supervised withdrawal. Pt was observed intoxicated and noted with alcohol breath.Pt is observed with slurred speech. Body check was done, Skin is intact, warm and dry to touch. Pt was previously hospitalized at this facility on December 2016. Pt states of relapsing on New Year. Pt denies any PMH and denies any home medication. Pt is full code, regular diet and NKA. Denies any hx of seizures. Pt states of multiple substance abuse in the past 6 weeks. Pt states of drinking alcohol, unspecific amounts on non daily basis. Pt states he last drank was on 04/11/17 prior to admission, pt states he drank 1.5 pints of whiskey. Pt states alcohol "is not an issue". Pt states, "Alcohol is not the problem it's the coke". Pt states of taking Xanax 2-4mg PO every other day. Pt states of first use was at the age of 16 yrs old. Last use was on 04/09/17, consumed 4mg PO. Pt also states of using [place] 30mg PO every other day. Pt states he first use [place] at 15 yrs old. Last use was on 04/09/17, Pt consumed 30mg PO. Pt states he uses Dilaudid 12mg PO every other day. Pt states he first used Dilaudid at the age of 15 yrs old. Last use was on 04/09/17, pt states he used 12mg PO. In addition, pt would snort cocaine 1-2g daily. Pt states he first started using cocaine at the age of 17 yrs old. Last use was on 04/11/17, pt states of snorting 2.5g. Due to pt being intoxicated prior to admission, no evidence of withdrawal is noted. CIWA score and COWS score is not applicable at this time. Pt was seen and examined by Dr. Greenwood with new orders for Ativan PRN and Subutex PRN for s/s of w/d. Pt was educated on medication regimen and plan of care. Pt was able to verbalize understanding. Pt was oriented around unit and equipment in room. Pt is place on seizure and fall precautions. Call light is within reach.
[2017-04-11 17:15] VITALS: BP 102/55
[2017-04-11] MEDS ORDERED: POTASSIUM CHLORIDE 20 MEQ TAB.PRT.SR PO ONE (18:00)
--- NOTE | 2017-04-11 19:10 | NUR ---
END OF SHIFT NOTE Pt was endorsed to night worker nurse. Pt continues to be observed intoxicated. CIWA score and COWS scores is not applicable. Pt's K+ level was abnormal and was replaced with K-Dur 40Meq x1. Medication was matheus well. Pt was encouraged increase fluid intake. VS are WNL. Safety precautions observed. Call light is within reach.
--- NOTE | 2017-04-11 19:30 | NUR ---
START OF SHIFT Pt is a 22 y/o male admitted on 04/11/17 for ETOH, benzo, opiate and cocaine withdrawal. Pt came in intoxicated, no PRNs administered. Pt has PRN Ativan and Subutex available at this time. Upon assessment pt is laying in bed with eyes closed. Upon awakening pt presents with fatigue, difficulty concentrating, flat affect and anxiety. Safety measures in place. Call light within reach. No scheduled medications due at this time. Will continue to monitor.
[2017-04-11 20:00] VITALS: BP 122/55
--- NOTE | 2017-04-11 20:00 | NUR ---
COWS/CIWA DEFERRED Pt laying in bed with eyes closed, upon awakening pt is unable to stay awake to maintain a conversation. Respirations even and unlabored. Pt noted to be still intoxicated. COWS/CIWA deferred at this time. Safety measures in place. Call light within reach. Will continue to monitor.
[2017-04-12] VITALS: BP 117/53
--- NOTE | 2017-04-12 | NUR ---
COWS/CIWA DEFERRED Pt laying in bed with eyes closed, COWS/CIWA deferred, to be assessed when pt is awake per orders. Respirations even and unlabored. Safety measures in place. Call light within reach. Will continue to monitor.
[2017-04-12 04:00] VITALS: BP 138/63
--- NOTE | 2017-04-12 07:20 | NUR ---
END OF SHIFT Pt is a 22 y/o male admitted on 04/11/17 for ETOH, benzo, opiate and cocaine withdrawal. Pt has PRN Ativan and Subutex available at this time. Pt slept throughout shift and presented with fatigue, difficulty concentrating, flat affect and anxiety. No scheduled medications or PRNs administered. Last COWS 4 and CIWA 9. Pt slept until approximately 0400 and was unable to go back to sleep. Pt slept 8 hours. Intake 900 ml, void x 3, stool x 0. Safety measures in place. Call light within reach. Pts needs have been met. Endorsed to day shift nurse.
--- NOTE | 2017-04-12 07:30 | NUR ---
start of shift note: pt is in stable condition no s/s of pain or discomfort pt is admitted for polysubstance withdrawal/dependence. pt's last cows 4 and ciwa 9. pt is very hyperactive and restless. pt is very friendly towards staff and others. will monitor pt for any changes and will continue to monitor pt for any changes.
[2017-04-12 09:00] VITALS: BP 139/76
[2017-04-12] MEDS ORDERED: TUBERCULIN,PURIF.PROT.DERIV. 5 TU/0.1 ML TEST ID ONE (09:00)
[2017-04-12] MEDS: FOLIC ACID 1 MG TABLET PO SCH (09:31)
[2017-04-12] MEDS: MULTIVITAMINS,THERAPEUTIC TABLET PO SCH (09:31)
[2017-04-12] MEDS: THIAMINE HCL 100 MG TABLET PO SCH (09:31)
[2017-04-12] MEDS: METHOCARBAMOL 750 MG TABLET PO PRN ×2 (09:39→21:23)
--- NOTE | 2017-04-12 09:39 | NUR ---
PRN ROBAXIN ADMINISTRATION: PT WITH COMPLAINTS OF BODY PAIN AND ACHES, PAIN LEVEL 7/10, WILL RE-ASSESS EFFECTIVENESS OF MEDICATION
--- NOTE | 2017-04-12 10:39 | NUR ---
RE-ASSESSMENT: PT VERBALIZED ROBAXIN IS EFFECTIVE, NO PAIN OR DISCOMFORT NOTED PAIN LEVEL 0/10
[2017-04-12] MEDS ORDERED: IV D5 1/2 NS 1000 ML 1,000 ML IV PRN (12:30)
--- NOTE | 2017-04-12 12:41 | NUR ---
Therapist prompted client to come to group today.
--- NOTE | 2017-04-12 12:51 | NUR ---
IV therapy was initiated for hydration, IV site on (R) AC area 24 gauge, site was intact and patent, IV fluids of D5 1/2 NS IS running at this time
[2017-04-12 14:50] VITALS: BP 121/77
[2017-04-12 17:24] VITALS: BP 144/77
[2017-04-12] MEDS ORDERED: BUPRENORPHINE HCL 2 MG TAB.SUBL SL PRN (18:30)
--- NOTE | 2017-04-12 19:13 | NUR ---
END OF SHIFT NOTE: PT IS IN STABLE CONDITION AND ATTENDED ALL GROUPS THROUGHOUT THE SHIFT TAPER WAS NOT INITIATED ON DAY SHIFT, FLUIDS ARE RUNNING AND IV SITE PATENT. PT IS ADMITTED TO [facility] FOR POLYSUBSTANCE ABUSE. PT'S LAST COWS 5 AND CIWA 7 FOR IN ABILITY TO STAY STILL. WILL ENDORSE PT TO CHIEF FISHERY DIVISION NURSE.
--- NOTE | 2017-04-12 19:30 | NUR ---
START OF SHIFT Pt is a 22 y/o male admitted on 04/11/17 for ETOH, benzo, opiate and cocaine withdrawal. Per day shift nurse, last COWS 5 and CIWA 7 and PRN Robaxin administered. Pt was started on IVF D5-1/2NS running at 125 ml/hr. IV is in right AC, site is patent with no redness, swelling or complains of pain. Pt has PRN Ativan and Subutex available at this time. Upon assessment pt presents with anxiety, restlessness, chills, sweats, cold and hot flashes, fatigue, difficult falling and staying asleep, flat affect and appears depressed. Safety measures in place. Call light within reach. No scheduled medications due at this time. Will continue to monitor.
[2017-04-12 20:00] VITALS: BP 144/84
[2017-04-12] MEDS ORDERED: LORAZEPAM 1 MG TABLET PO SCH (21:00)
[2017-04-12] MEDS: GABAPENTIN 300 MG CAPSULE PO SCH (21:24)
--- NOTE | 2017-04-12 21:30 | NUR ---
PRN ROBAXIN, BENADRYL AND CLONIDINE ADMINISTRATION Pt reports body aches mostly in legs and back 6/10 and presents with anxiety, agitation, sweats, chills and cold and hot flashes. Pt requests sleep aid for insomnia. BP 144/84 HR 71. Safety measures in place. Call light within reach. Will continue to monitor.
--- NOTE | 2017-04-12 22:30 | NUR ---
PRN ROBAXIN, BENADRYL AND CLONIDINE REASSESSMENT Pt laying in bed with eyes closed, appears comfortable, mediations noted effective. Respirations even and unlabored. Safety measures in place. Call light within reach. Will continue to monitor.
--- NOTE | 2017-04-13 | NUR ---
COWS/CIWA DEFERRED AND VITALS REFUSED Pt laying in bed with eyes closed, COWS/CIWA deferred, to be assessed when pt is awake per orders. Vitals refused. Respirations even and unlabored. Safety measures in place. Call light within reach. Will continue to monitor.
[2017-04-13 06:46] LABS: BASOPHILS % (AUTO) 0.6 % (0.0-2.0); EOSINOPHILS # (AUTO) 0.2 K/uL (0.0-0.7); EOSINOPHILS % (AUTO) 2.6 % (0.0-7.0); HEMATOCRIT 44.2 % (36.7-47.1); HEMOGLOBIN 15.1 g/dL (12.5-16.3); LYMPHOCYTES # (AUTO) 2.6 K/uL (20.0-40.0); LYMPHOCYTES % (AUTO) 39.6 % (20.5-51.5); MEAN CORPUSCULAR HEMOGLOBIN 31.1 uug (23.8-33.4); MEAN CORPUSCULAR HGB CONC 34 g/dL (32.5-36.3); MEAN CORPUSCULAR VOLUME 90.8 fL (73.0-96.2); MONOCYTES # (AUTO) 0.8 K/uL (2.0-10.0); MONOCYTES % (AUTO) 12.3 % (0.0-11.0); NEUTROPHILS # (AUTO) 2.9 K/uL (1.8-8.9); NEUTROPHILS % (AUTO) 44.9 % (38.5-71.5); PLATELET COUNT (AUTO) 250 K/uL (152-348); RED BLOOD CELL COUNT(AUTO) 4.86 MIL/uL (4.06-5.63); WHITE BLOOD COUNT (AUTO) 6.6 K/uL (3.6-10.2)
[2017-04-13 06:53] LABS: BILIRUBIN,DIRECT 0.3 mg/dL (0.0-0.2); BILIRUBIN,TOTAL 1.6 mg/dL (0.2-1.0); CREATININE 1.3 mg/dL (0.6-1.3); MAGNESIUM 1.9 mg/dL (1.8-2.4); POTASSIUM 3.4 mmol/L (3.5-5.1); TOTAL PROTEIN, SERUM 7.6 g/dL (6.4-8.2)
--- NOTE | 2017-04-13 07:08 | NUR ---
END OF SHIFT Pt is a 22 y/o male admitted on 04/11/17 for ETOH, benzo, opiate and cocaine withdrawal. Pt was started on IVF D5-1/2NS running at 125 ml/hr. IV is in right AC, site is patent with no redness, swelling or complains of pain. Pt has PRN Ativan and Subutex available at this time. Pt presented with anxiety, restlessness, chills, sweats, cold and hot flashes, fatigue, difficult falling and staying asleep, flat affect and appears depressed. Pt woke up at approximately 0400 and could not go back to sleep and was pacing the hallways. Scheduled medications and PRN Robaxin, Benadryl and Clonidine administered, effective in S/S of withdrawal AEB COWS 8 and CIWA 8 lowered to COWS 6 and CIWA 7 during shift. Pt slept 7 hours. Intake 1053 ml, void x 1, stool x 0. Safety measures in place. K+ 3.4 on 04/13/17, to be replaced during day shift. Call light within reach. Pts needs have been met. Endorsed to day shift nurse.
--- NOTE | 2017-04-13 07:30 | NUR ---
Start of Shift Report from the night nurse: pt is a 22 y/o male here for Etoh, Xanax 2-4mg qod, Dilaudid 12mg qod and cocaine 1-2.5g daily all for 6 weeks; PRN Subutex and Ativan ordered. Pt is a full code, NKA, regular diet, fall and seizure precautions ordered. HHx: Smoker, Relapse here 12/2016. PRN Robaxin, Benadryl, Clonidine given last night. PIV in Rt AC c/l with d51/NS at 125cc/h cont. for maintenance per pt request. Endorsed low K+ 3.4 and NNO at this time; will notify MD. Last COWS 6 CIWA 7. Pt is awake and listening to music in room. Will cont. to monitor the pt.
[2017-04-13 08:00] VITALS: BP 136/91
[2017-04-13 08:06] LABS: HEPATITIS B SURFACE AG Negative (Negative)
[2017-04-13] MEDS: FOLIC ACID 1 MG TABLET PO SCH (08:08)
[2017-04-13] MEDS: THIAMINE HCL 100 MG TABLET PO SCH (08:08)
[2017-04-13] MEDS: GABAPENTIN 300 MG CAPSULE PO SCH ×3 (08:09→21:22)
[2017-04-13] MEDS: FAMOTIDINE 20 MG TABLET PO SCH (08:09)
[2017-04-13] MEDS: MULTIVITAMINS,THERAPEUTIC TABLET PO SCH (08:09)
--- NOTE | 2017-04-13 08:16 | NUR ---
PRN Medication Administration-Ativan Pt is in room stand at bed side with moderately anxiety, reports agitation, is barely sweating after returning back from a smoke, V/S stable, CIWA 5; PRN Ativan 1mg given w/n parameters. Will reassess in 1H.
--- NOTE | 2017-04-13 09:16 | NUR ---
Reassessment Pt is in room and about to go for another smoke and states that he now has mild anxiety, and is still somewhat agitated CIWA 2; Ativan is effective. Will cont. to monitor the pt.
[2017-04-13 12:00] VITALS: BP 138/96
[2017-04-13] MEDS ORDERED: POTASSIUM CHLORIDE 20 MEQ TAB.PRT.SR PO ONE (12:15)
[2017-04-13] MEDS: LORAZEPAM 1 MG TABLET PO SCH ×2 (13:13→16:00)
--- NOTE | 2017-04-13 13:25 | NUR ---
Therapist encouraged client to attend group today.
[2017-04-13 16:00] VITALS: BP 132/89
--- NOTE | 2017-04-13 19:21 | NUR ---
End of Shift Report to the night nurse: pt is a 22 y/o male here for Etoh, Xanax 2-4mg qod, Dilaudid 12mg qod and cocaine 1-2.5g daily all for 6 weeks; PRN Subutex and Ativan ordered. Pt is a full code, NKA, regular diet, fall and seizure precautions ordered. HHx: Smoker, Relapse here 12/2016. PRN Ativan given with CIWA 5 r/t anxiety and agitation. New order for scheduled at 1300 and 1700pm during my shift. New order to d/c the PIV in Rt AC c/l and stop the D5 1/2NS. K-Dur given for low K+ 3.4 given during my shift. 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 Pt then discussed with the d/c search planner his pending d/c which caused him to calm down and decide to stay the rest of the detox.
--- NOTE | 2017-04-13 19:30 | NUR ---
START OF SHIFT Received 22 year old male patient. Pt currently in group at this time. Per endorsement, pt's potassium was replaced. He is on a 2 day Ativan taper for withdrawal management. Per endorsement, he received PRN Ativan. Will continue to monitor.
--- NOTE | 2017-04-13 19:30 | NUR ---
START OF SHIFT Received 22 year old male patient. Pt currently lying in bed with eyes closed and is noted to be asleep. Pt responds to nurses greeting. Per endorsement, pt is scheduled to be DC tomorrow to [facility]. He did not receive or request any PRN medications. Breathing is even and unlabored, safety measures in place. Will continue to monitor. Addendum: 04/13/17 at 2016 by VIV WATTERS RN ERROR IN CHARTING charted on wrong pt.
[2017-04-13 20:30] VITALS: BP 129/82
[2017-04-13] MEDS ORDERED: TRAZODONE 50 MG TABLET PO PRN (21:00)
[2017-04-13] MEDS ORDERED: LORAZEPAM 1 MG TABLET PO SCH (21:00)
[2017-04-13] MEDS: CLONIDINE HCL 0.1 MG TABLET PO SCH (21:22)
[2017-04-13 23:22] VITALS: BP 126/81
--- NOTE | 2017-04-13 23:22 | NUR ---
PRN ATIVAN/ TRAZODONE Pt complains of anxiety, agitation, insomnia, sweats, and chills. Pt noted to be angry, fidgety and suspicious. CIWA:12. PRN Ativan 2mg and Trazodone administered as ordered. Safety measures in place. Will monitor effectiveness.
[2017-04-13] MEDS: KETOROLAC TROMETHAMINE 30 MG INJ IM PRN (23:28)
--- NOTE | 2017-04-13 23:28 | NUR ---
PRN TORADOL Pt complains of generalized body aches and pain 10/08. Pt states " Robaxin and Motrin don't work for me." PRN Toradol IM administered as ordered for pain. Will monitor effectiveness.
--- NOTE | 2017-04-14 | NUR ---
PRN TORADOL REASSESSMENT PRN medication effective. Pt lying in bed with eyes closed noted to be asleep. No facial grimacing noted. Breathing even and unlabored. Safety measures in place. Will continue to monitor.
--- NOTE | 2017-04-14 00:22 | NUR ---
PRN ATIVAN/TRAZODONE REASSESSMENT PRN medication is effective. Pt lying in bed with eyes closed noted to be asleep. Breathing even and unlabored. Safety measures in place. Will continue to monitor.
--- NOTE | 2017-04-14 04:00 | NUR ---
VITALS REFUSED, COWS/CIWA DEFERRED 0400 vitals refused. COWS and CIWA deferred d/t pt lying in bed with eyes closed noted to be asleep. Safety measures in place. Will continue to monitor.
--- NOTE | 2017-04-14 07:02 | NUR ---
END OF SHIFT Pt is a 22 year old male patient. Pt was noted with anxiety, irritability, diaphoresis, chills, insomnia and restlessness. Pt complained of body aches and stated " I feel like shit." He received PRN Ativan, Trazodone and Toradol. He slept a total of 6 hrs, Intake: 1,355mL, Void: x3, BM:0, COWS:12, CIWA:12 Per endorsement, pt's potassium was replaced. He continues on a 2 day Ativan taper for withdrawal management. Pt remains alert and oriented x4, breathing even and unlabored, safety measures in place. Will endorse to AM shift.
--- NOTE | 2017-04-14 07:30 | NUR ---
start of shift note: received pt from utility bill collector nurse, pt is sleeping at this time, pt is admitted for polysubstance withdrawal/dependence. pt is in stable condition, and will continue to monitor pt for any changes. pt without A/R to medications.
[2017-04-14] MEDS ORDERED: LORAZEPAM 1 MG TABLET PO SCH (09:00)
[2017-04-14] MEDS: GABAPENTIN 300 MG CAPSULE PO SCH (09:45)
[2017-04-14] MEDS: MULTIVITAMINS,THERAPEUTIC TABLET PO SCH (09:45)
[2017-04-14] MEDS: FOLIC ACID 1 MG TABLET PO SCH (09:46)
[2017-04-14] MEDS: CLONIDINE HCL 0.1 MG TABLET PO SCH (09:46)
[2017-04-14] MEDS: THIAMINE HCL 100 MG TABLET PO SCH (09:46)
[2017-04-14] MEDS: FAMOTIDINE 20 MG TABLET PO SCH (11:00)
[2017-04-14 11:28] VITALS: BP 121/77
[2017-04-14 12:22] VITALS: BP 121/75
[2017-04-14] MEDS: KETOROLAC TROMETHAMINE 30 MG INJ IM PRN (12:41)
--- NOTE | 2017-04-14 12:41 | NUR ---
PRN toradol, pt with complaints of pain in lower extremities, pain level 8/10, will re-assess effectiveness of medication
[2017-04-14 13:00] VITALS: BP 121/75
--- NOTE | 2017-04-14 13:15 | NUR ---
prn re-assessment: pt verbalized it was effective, pain scale 0/10
--- NOTE | 2017-04-14 13:40 | NUR ---
episode with agitation and verbalized wanting to leave AMA, pt was able to speak with DOO and primary nurse and were able to talk patient down. pt is now calm
[2017-04-14] MEDS ORDERED: IBUPROFEN 800 MG TABLET PO PRN (14:15)
[2017-04-14] MEDS ORDERED: GABAPENTIN 300 MG CAPSULE PO SCH ×2 (15:00→21:00)
[2017-04-14] MEDS ORDERED: METH-406 PO (16:28)
[2017-04-14] MEDS ORDERED: DIPH50CA37 PO (16:28)
[2017-04-14] MEDS ORDERED: CLON0.1T14 PO (16:28)
[2017-04-14] MEDS ORDERED: GABA-534 PO ×2 (16:28)
[2017-04-14] MEDS ORDERED: FAMO20TA8 PO (16:28)
[2017-04-14] MEDS ORDERED: DICY20TA28 PO (16:28)
[2017-04-14] MEDS ORDERED: IBUP-1957 PO (16:28)
--- NOTE | 2017-04-14 17:00 | NUR ---
discharge note: pt left the unit in stable condition and was medically cleared for discharge. pt teaching is administered and pt verbalized understanding. pt's personal belongings were returned. pt will be transferred to the [facility] via private car
== END 2017-04-14 17:00 | disposition home or self-care (01) | DRG 895 ==
LOC: SRC 15:06
PROVIDERS: ADMIT Internal Medicine; ATTEND Internal Medicine
PROC: HZ2ZZZZ Detoxification Services for Substance Abuse Treatment (ICD-10-PCS; principal; 2017-04-11)
PROC: HZ41ZZZ Group Counseling for Substance Abuse Treatment, Behavioral (ICD-10-PCS; 2017-04-12)
PROC: HZ31ZZZ Individual Counseling for Substance Abuse Treatment, Behavioral (ICD-10-PCS; 2017-04-14)
DX: F10.239 Alcohol dependence with withdrawal, unspecified (principal); Z86.74 Personal history of sudden cardiac arrest; I15.9 Secondary hypertension, unspecified; A53.0 Latent syphilis, unspecified as early or late; F14.229 Cocaine dependence with intoxication, unspecified; F13.239 Sedative, hypnotic or anxiolytic dependence with withdrawal, unspecified; F11.23 Opioid dependence with withdrawal; E86.0 Dehydration; Y90.9 Presence of alcohol in blood, level not specified; F17.210 Nicotine dependence, cigarettes, uncomplicated; F43.10 Post-traumatic stress disorder, unspecified; H11.32 Conjunctival hemorrhage, left eye; Z91.89 Other specified personal risk factors, not elsewhere classified; Z81.1 Family history of alcohol abuse and dependence; E87.6 Hypokalemia; F12.10 Cannabis abuse, uncomplicated; Z83.3 Family history of diabetes mellitus; F39 Unspecified mood [affective] disorder; D72.823 Leukemoid reaction; R74.0 Nonspecific elevation of levels of transaminase and lactic acid dehydrogenase [LDH]
CPT/HCPCS: 36415; 70030-TC; 80307; 80349; 80353; 83735; 85025; 86592; 86705; 86780; 86803; 87340; 87806; G0480; J1885; J3490; Q0163